=== PATIENT | male | born 1985 | race Caucasian/White ===

== ENCOUNTER → 2018-02-12 16:20 | Outpatient (CLI) | payer OTHER, SELFPAY ==
--- NOTE | 2018-02-12 16:23 | DI.RAD.S_ITS ---
PROCEDURE: XR WRIST RT MIN 3V INDICATIONS: bump on right wrist, possible dorsal ganglion TECHNIQUE: 4 views of the wrist were acquired. COMPARISON: None. FINDINGS: Bones: No fractures or dislocations. No suspicious bony lesions. Scaphoid view: Not requested Soft tissues: No suspicious soft tissue calcifications. IMPRESSION: No osseous abnormality or soft tissue calcifications. Dictated by: Patrice Marley M.D. on 02/14/2018 at 12:43 Approved by: Patrice Marley M.D. on 02/14/2018 at 12:44
== END ==
PROVIDERS: Visit Provider Physician Assistant
DX: M67.431 Ganglion, right wrist (principal)
CPT/HCPCS: 73110

== ENCOUNTER → 2018-10-06 13:37 | Outpatient (CLI) | payer OTHER, SELFPAY ==
[2018-10-06 14:12] LABS: Influenza A and B by PCR Rapid Negative (Negative)
== END ==
PROVIDERS: Visit Provider Physician Assistant
DX: R68.89 Other general symptoms and signs (principal)
CPT/HCPCS: 87400

== ENCOUNTER → 2018-10-06 14:35 | Outpatient (CLI) | payer OTHER, SELFPAY ==
--- NOTE | 2018-10-06 14:37 | DI.RAD.S_ITS ---
PROCEDURE: XR CHEST 2V INDICATIONS: cough TECHNIQUE: 2 views of the chest were acquired. COMPARISON: [facility], , CHEST 2 VIEW, 08/22/2015, 13:57. FINDINGS: Surgical changes and devices: None. Lungs and pleura: Lungs are clear. No pleural effusions or pneumothorax. Mediastinum: Mediastinal contours are normal. Heart size is normal. Bones and chest wall: No suspicious bony abnormalities. Soft tissues appear unremarkable. IMPRESSION: No acute cardiopulmonary disease. Dictated by: Lefty Butler M.D. on 10/06/2018 at 16:25 Approved by: Lefty Butler M.D. on 10/06/2018 at 16:30
== END ==
PROVIDERS: Visit Provider Physician Assistant
DX: R05 Cough (principal); R68.89 Other general symptoms and signs
CPT/HCPCS: 71046; 87400

== ENCOUNTER → 2018-10-14 07:16 | Outpatient (CLI) | payer OTHER, SELFPAY ==
[2018-10-14 08:08] LABS: Hemoglobin 16.3 g/dL (13.5-17.5); Mean Corpuscular Volume 88.3 fL (80-100); Platelet Count 188 X10^3/uL (150-400); Red Blood Cell Count 5.43 X10^6/uL (4.5-5.9); Red Cell Distribution Width 13.1 % (11.6-14.8); White Blood Cell Count 5.3 X10^3/uL (4.5-11.0)
[2018-10-14 08:18] LABS: Alanine Aminotransferase 33 IU/L (21-72); Albumin 4.6 g/dL (3.5-5.0); Albumin Globulin Ratio 1.5 (1.0-2.8); Alkaline Phosphatase 114 U/L (38-126); Aspartate Aminotransferase 24 IU/L (17-59); Blood Urea Nitrogen 16 mg/dL (9-20); Calcium 9.3 mg/dL (8.4-10.2); Carbon Dioxide 28 mmol/L (22-32); Chloride 102 mmol/L (98-107); Estimated Glomerular Filt Rate > 60.0 mL/min (>60); Globulin 3.1 g/dL (1.7-4.1); Glucose 98 mg/dL (70-100); HEMOLYSIS < 15 (0-50); Sodium 139 mmol/L (137-145); Total Protein 7.7 g/dL (6.3-8.2)
== END ==
PROVIDERS: Visit Provider Nurse Practitioner Family
DX: J45.40 Moderate persistent asthma, uncomplicated (principal); Z00.00 Encounter for general adult medical examination without abnormal findings
CPT/HCPCS: 36415; 80053; 85027

== ENCOUNTER → 2021-09-02 09:21 | Outpatient (CLI) | payer OTHER, SELFPAY ==
[2021-09-02 10:23] LABS: COVID19 -Nasal RAPID Negative (Negative)
== END ==
PROVIDERS: Visit Provider Physician Assistant
DX: Z20.822 Contact with and (suspected) exposure to COVID-19 (principal)
CPT/HCPCS: 87635